=== PATIENT | female | born 1965 | race American Indian/Alaskan Native ===

== ENCOUNTER 2017-07-31 11:14 | Emergency (ER) | payer SELFPAY ==
--- NOTE | 2017-07-31 14:58 | Emergency Department Report ---
ED Headache HPI - General Chief Complaint: Headache Stated Complaint: HEADACHE,BLURRED VISION Time Seen by Provider: 07/31/17 14:39 - History of Present Illness Initial Comments: Patient is a 52-year-old female with a history of migraine presents to ED complaining of right sided ocular, throbbing, headache that started this morning while she was at work. Patient states she was at work she started to have some blurry vision on the right side of her eye until constant headache. She also reports right-sided neck and shoulder pain Patient states she is migraines in the past and she she takes Tylenol PM for relief. Patient denies any fever/chills/nausea/vomiting/ dizziness/head trauma or injury. Allergies/Adverse Reactions: Allergies No Known Allergies Allergy (Verified 07/03/14 22:23) Home Medications: Ambulatory Orders ARIPiprazole [Abilify] 5 mg PO DAILY 09/16/13 Amitriptyline [Elavil] 50 mg PO QHS 09/16/13 QUEtiapine [Seroquel] 300 mg PO QDAY 09/16/13 Vilazodone Hydrochloride [Viibryd] 40 mg PO QDAY 09/16/13 HYDROcodone/APAP 5-325 [[place] 5/325 mg] 1 each PO Q6HR PRN #20 tablet 09/17/13 Cephalexin [Keflex] 500 mg PO BID #20 capsule 07/04/14 HYDROcodone/APAP 5-325 [[place] 5/325] 1 each PO Q6HR PRN #14 tablet 07/04/14 Ibuprofen [Motrin 800 MG tab] 800 mg PO Q8H #30 tablet 07/04/14 Mupirocin [Bactroban 2% Oint] 1 applic TP TID #22 gram 07/04/14 Sulfamethoxazole/Trimethoprim [Bactrim Ds] 1 each PO BID #20 tablet 07/04/14 HYDROcodone/APAP 10-325 [[place] 10-325 mg TAB] 1 each PO Q6HR PRN #20 tablet Amoxicillin/K Clav Tab [Augmentin 875 mg] 1 tab PO Q12HR #12 tab 07/31/17 Ibuprofen [Motrin 600 MG tab] 600 mg PO Q8H PRN #30 tablet 07/31/17 Prochlorperazine [Compazine] 10 mg PO Q8HR #30 tablet 07/31/17 Pseudoephedrine ER [Sudafed 12 Hr] 120 mg PO BID #20 tablet.er 07/31/17 ED Review of Systems ROS: Stated complaint: HEADACHE,BLURRED VISION Other details as noted in HPI Constitutional: denies: chills, fever Eyes: denies: eye pain, eye discharge, vision change ENT: denies: ear pain, throat pain Respiratory: denies: cough, shortness of breath, wheezing Cardiovascular: denies: chest pain, palpitations Endocrine: no symptoms reported Gastrointestinal: denies: abdominal pain, nausea, diarrhea Genitourinary: denies: urgency, dysuria, discharge Musculoskeletal: denies: back pain, joint swelling, arthralgia Skin: denies: rash, lesions Neurological: denies: headache, weakness, paresthesias Psychiatric: denies: anxiety, depression Hematological/Lymphatic: denies: easy bleeding, easy bruising ED Past Medical Hx - Past Medical History Previous Medical History?: Yes Hx Psychiatric Treatment: Yes (depression anxiety) - Surgical History Past Surgical History?: Yes Additional Surgical History: hysterectomy csection - Social History Smoking Status: Current Every Day Smoker Substance Use Type: Alcohol - Medications Home Medications: Home Medications Medication Instructions Recorded Confirmed Last Taken Type ARIPiprazole [Abilify] 5 mg PO DAILY 09/16/13 09/16/13 09/15/13 21:00 History Amitriptyline [Elavil] 50 mg PO QHS 09/16/13 09/16/13 09/15/13 21:00 History QUEtiapine [Seroquel] 300 mg PO QDAY 09/16/13 09/16/13 09/15/13 21:00 History Vilazodone Hydrochloride [Viibryd] 40 mg PO QDAY 09/16/13 09/16/13 09/15/13 21: 00 History HYDROcodone/APAP 5-325 [[place] 1 each PO Q6HR PRN #20 tablet 09/17/13 Unknown Rx 5/325 mg] Cephalexin [Keflex] 500 mg PO BID #20 capsule 07/04/14 Unknown Rx HYDROcodone/APAP 5-325 [[place] 1 each PO Q6HR PRN #14 tablet 07/04/14 Unknown Rx 5/325] Ibuprofen [Motrin 800 MG tab] 800 mg PO Q8H #30 tablet 07/04/14 Unknown Rx Mupirocin [Bactroban 2% Oint] 1 applic TP TID #22 gram 07/04/14 Unknown Rx Sulfamethoxazole/Trimethoprim 1 each PO BID #20 tablet 07/04/14 Unknown Rx [Bactrim Ds] HYDROcodone/APAP 10-325 [[place] 1 each PO Q6HR PRN #20 tablet 07/06/14 Unknown Rx 10-325 mg TAB] Amoxicillin/K Clav Tab [Augmentin 1 tab PO Q12HR #12 tab 07/31/17 Unknown Rx 875 mg] Ibuprofen [Motrin 600 MG tab] 600 mg PO Q8H PRN #30 tablet 07/31/17 Unknown Rx Prochlorperazine [Compazine] 10 mg PO Q8HR #30 tablet 07/31/17 Unknown Rx Pseudoephedrine ER [Sudafed 12 Hr] 120 mg PO BID #20 tablet.er 07/31/17 Unknown Rx ED Physical Exam - General Limitations: No Limitations General appearance: alert, in no apparent distress - Head Head exam: Present: atraumatic, normocephalic - Eye Eye exam: Present: normal appearance, PERRL, EOMI - ENT ENT exam: Present: normal exam, mucous membranes moist - Neck Neck exam: Present: normal inspection - Respiratory Respiratory exam: Present: normal lung sounds bilaterally. Absent: respiratory distress, wheezes, rales, rhonchi - Cardiovascular Cardiovascular Exam: Present: regular rate, normal rhythm. Absent: systolic murmur, diastolic murmur, rubs, gallop - GI/Abdominal GI/Abdominal exam: Present: soft, normal bowel sounds - Extremities Exam Extremities exam: Present: normal inspection - Back Exam Back exam: Present: normal inspection - Neurological Exam Neurological exam: Present: alert, oriented X3, CN II-XII intact - Expanded Neurological Exam Expanded Patient oriented to: Present: person, place, time Speech: Present: fluid speech Cranial nerves: EOM's Intact: Normal, Facial Sensation: Normal Cerebellar function: Finger to Nose: Normal Sensory exam: Upper Extremity Light Touch: Normal, Upper Extremity Temperature: Normal, Lower Extremity Light Touch: Normal, Lower Extremity Temperature: Normal Motor strength exam: RUE: 5, LUE: 5, RLE: 5, LLE: 5 DTR: knee (R): 2+, knee (L): 2+ Best Eye Response ([place]): (4) open spontaneously Best Motor Response ([place]): (6) obeys commands Best Verbal Response ([place]): (5) oriented [place] Total: 15 - Psychiatric Psychiatric exam: Present: normal affect, normal mood - Skin Skin exam: Present: warm, dry, intact, normal color. Absent: rash ED Course Vital Signs 07/31/17 12:30 Temperature 98.2 F Pulse Rate 69 Respiratory 18 Rate Blood Pressure 146/90 O2 Sat by Pulse 100 Oximetry ED Medical Decision Making - Radiology Data Radiology results: report reviewed, image reviewed CT scan of head without IV contrast: History: Right upper leg pain blurred vision. Findings: Ventricles are normal in size and midline in location. No evidence of acute ischemia, hemorrhage or mass. Normal brainstem and cerebellum. Mucosal edema of the ethmoid and sphenoid sinuses. Normal mastoid air cells. Impression: No acute intracranial abnormality. Sinus disease. Transcribed By: PTP Dictated By: RAFAEL ORTIZ MD Electronically Authenticated By: RAFAEL ORTIZ MD Signed Date/Time: 07/31/17 0204 - Medical Decision Making 52-year-old female presents with migraine headache ED course: Patient received Toradol in the ED CT of the head ordered. CT of the head shows sinus disease Discussed findings with the patient. Discussed with patient to avoid stressors and take medication as prescribed. Discussed proper rest and increase fluid intake as well as eating appropriately times Patient is neurologically intact she has no neuro deficits she is in no acute distress Discussed patient will follow up with primary care physician for continued management. Critical care attestation.: If time is entered above; I have spent that time in minutes in the direct care of this critically ill patient, excluding procedure time. ED Disposition Clinical Impression: Ocular headache Sinusitis Qualifiers: Sinusitis location: ethmoidal Chronicity: subacute Qualified Code(s): J01.20 - Acute ethmoidal sinusitis, unspecified Disposition: DC-01 TO HOME OR SELFCARE Is pt being admited?: No Does the pt Need Aspirin: No Condition: Stable Instructions: Acute Headache (ED), Migraine Headache (ED), Sinusitis (ED) Prescriptions: Amoxicillin/K Clav Tab [Augmentin 875 mg] 1 tab PO Q12HR #12 tab Ibuprofen [Motrin 600 MG tab] 600 mg PO Q8H PRN #30 tablet PRN Reason: Pain Prochlorperazine [Compazine] 10 mg PO Q8HR #30 tablet Pseudoephedrine ER [Sudafed 12 Hr] 120 mg PO BID #20 tablet.er Referrals: PRIMARY CARE, [Primary Care Provider] - 3-5 Days RANJEET MIR MD [Staff Physician] - 3-5 Days [facility] [Outside] - 3-5 Days [facility] [Outside] - 3-5 Days Forms: Accompanied Note, Work/School Release Form(ED) Time of Disposition: 15:19
--- NOTE | 2017-07-31 15:08 | Cat Scan Report ---
CT scan of head without IV contrast: History: Right upper leg pain blurred vision. Findings: Ventricles are normal in size and midline in location. No evidence of acute ischemia, hemorrhage or mass. Normal brainstem and cerebellum. Mucosal edema of the ethmoid and sphenoid sinuses. Normal mastoid air cells. Impression: No acute intracranial abnormality. Sinus disease.
[2017-07-31 15:44] VITALS: BP 136/81
== END 2017-07-31 15:43 | disposition home or self-care (01) ==
LOC: ED 11:14
DX: J01.20 Acute ethmoidal sinusitis, unspecified (principal); R51 Headache; F32.9 Major depressive disorder, single episode, unspecified; F41.9 Anxiety disorder, unspecified; F17.200 Nicotine dependence, unspecified, uncomplicated
CPT/HCPCS: 70450

== ENCOUNTER 2017-12-15 13:09 | Emergency (ER) | payer SELFPAY ==
[2017-12-15 13:15] VITALS: BP 122/80
[2017-12-15] MEDS ORDERED: TYLENOL PO ONE (13:16)
[2017-12-15] MEDS ORDERED: TYLENOL ONE (13:17)
--- NOTE | 2017-12-15 14:09 | Emergency Department Report ---
Chief Complaint: Fever Stated Complaint: body pain - HPI History of Present Illness: 52-year-old female presents with a 2 day history of some nausea, vomiting and a productive cough. She also complains of upper abdominal discomfort. No past medical history. She took some Tylenol PM last night without any relief. She says she has felt febrile but did not check her temperature and does present with a low-grade fever. No dysuria, vaginal bleeding or discharge, chest pain or shortness of breath. She is a tobacco smoker. - ROS Review of Systems: Patient is positive for fever, chills, abdominal pain, nausea, vomiting and cough. Patient is negative for chest pain, shortness of breath, diaphoresis. - Exam Vital Signs: Vital Signs 12/15/17 13:13 Temperature 101.7 F H Pulse Rate 110 H Respiratory 16 Rate Blood Pressure 122/80 O2 Sat by Pulse 100 Oximetry Physical Exam: Patient does not appear to be in any acute distress. She is awake and alert. There is a productive sounding cough heard during examination. Heart sounds are normal to auscultation. Upper abdominal tenderness to palpation but no guarding or rebound tenderness and abdomen is not toxic or rigid. MSE screening note: Focused history and physical exam performed. Due to findings the following was ordered: I ordered a CBC, CMP, lipase and urinalysis. I ordered a chest and abdominal x- ray series. ED Disposition for MSE Condition: Stable
[2017-12-15 14:18] LABS: Basophils # (Auto) 0.1 K/mm3 (0.0-0.1); Basophils % (Auto) 0.4 % (0.0-1.8); Eosinophils # (Auto) 0.2 K/mm3 (0.0-0.4); Hematocrit 38.3 % (30.3-42.9); Hemoglobin 13.1 gm/dl (10.1-14.3); Lymphocytes # (Auto) 2.3 K/mm3 (1.2-5.4); Lymphocytes % (Auto) 14.1 % (13.4-35.0); Mean Corpuscular HGB Conc 34 % (30-34); Mean Corpuscular Hemoglobin 32 pg (28-32); Mean Corpuscular Volume 93 fl (79-97); Monocytes # (Auto) 1.6 K/mm3 (0.0-0.8); Platelet Count 246 K/mm3 (140-440); Red Blood Count 4.11 M/mm3 (3.65-5.03); Red Cell Distribution Width 13.4 % (13.2-15.2)
[2017-12-15 14:36] LABS: Alanine Aminotransferase 6 units/L (7-56); Albumin 3.6 g/dL (3.9-5); BUN/Creatinine Ratio 11; Blood Urea Nitrogen 9 mg/dL (7-17); Calcium 8.8 mg/dL (8.4-10.2); Hemolysis Index 2
--- NOTE | 2017-12-15 15:20 | Emergency Department Report ---
HPI - General Chief Complaint: Fever Time Seen by Provider: 12/15/17 14:59 - HPI HPI: 52-year-old -[place] female with no past medical history comes in for pain all over nausea vomiting diarrhea onset started on Saturday. Patient did take Tylenol PM last night. Patient complains of cough with phlegm upper abdominal tenderness and pain. She last vomited yesterday. Past medical history none surgical history and hysterectomy. She has no primary care provider. ED Past Medical Hx - Past Medical History Hx Psychiatric Treatment: Yes (depression anxiety) - Surgical History Additional Surgical History: hysterectomy csection - Social History Smoking Status: Current Every Day Smoker Substance Use Type: Alcohol - Medications Home Medications: Home Medications Medication Instructions Recorded Confirmed Last Taken Type ARIPiprazole [Abilify] 5 mg PO DAILY 09/16/13 09/16/13 09/15/13 21:00 History Amitriptyline [Elavil] 50 mg PO QHS 09/16/13 09/16/13 09/15/13 21:00 History QUEtiapine [Seroquel] 300 mg PO QDAY 09/16/13 09/16/13 09/15/13 21:00 History Vilazodone HCl [Viibryd] 40 mg PO QDAY 09/16/13 09/16/13 09/15/13 21:00 History HYDROcodone/APAP 5-325 [[place] 1 each PO Q6HR PRN #20 tablet 09/17/13 Unknown Rx 5/325 mg] Cephalexin [Keflex] 500 mg PO BID #20 capsule 07/04/14 Unknown Rx HYDROcodone/APAP 5-325 [[place] 1 each PO Q6HR PRN #14 tablet 07/04/14 Unknown Rx 5/325] Ibuprofen [Motrin 800 MG tab] 800 mg PO Q8H #30 tablet 07/04/14 Unknown Rx HYDROcodone/APAP 10-325 [[place] 1 each PO Q6HR PRN #20 tablet 07/06/14 Unknown Rx 10-325 mg TAB] Amoxicillin/K Clav Tab [Augmentin 1 tab PO Q12HR #12 tab 07/31/17 Unknown Rx 875 mg] Ibuprofen [Motrin 600 MG tab] 600 mg PO Q8H PRN #30 tablet 07/31/17 Unknown Rx ALBUTEROL Inhaler [ProAir HFA 2 puff IH QID PRN #1 inhalation 02/04/18 Unknown Rx Inhaler] Benzonatate [Tessalon Perle] 100 mg PO TID #30 capsule 12/15/17 Unknown Rx Doxycycline [Vibramycin CAP] 100 mg PO Q12HR 10 Days #20 capsule 12/15/17 Unknown Rx ED Review of Systems ROS: Stated complaint: body pain Other details as noted in HPI Constitutional: chills, fever Respiratory: cough Cardiovascular: denies: chest pain, palpitations Endocrine: no symptoms reported Gastrointestinal: nausea, vomiting, diarrhea Genitourinary: denies: urgency, dysuria, discharge Musculoskeletal: denies: back pain, joint swelling, arthralgia Skin: denies: rash, lesions Neurological: denies: headache, weakness, paresthesias Psychiatric: denies: anxiety, depression Hematological/Lymphatic: denies: easy bleeding, easy bruising Physical Exam - Physical Exam Vital Signs: Vital Signs 12/15/17 13:13 Temperature 101.7 F H Pulse Rate 110 H Respiratory 16 Rate Blood Pressure 122/80 O2 Sat by Pulse 100 Oximetry Physical Exam: GENERAL APPEARANCE: Well developed, well nourished, in no acute distress. SKIN: Inspection of the skin reveals no rashes, ulcerations or petechiae. HEENT: The sclerae were anicteric and conjunctivae were pink and moist. Extraocular movements were intact and pupils were equal, round, and reactive to light with normal accommodation. External inspection of the ears and nose showed no scars, lesions, or masses. Lips, teeth, and gums showed normal mucosa. The oral mucosa, hard and soft palate, tongue and posterior pharynx were normal. NECK: Supple and symmetric. There was no thyroid enlargement, and no tenderness , or masses were felt. CHEST: Normal AP diameter and normal contour without any kyphoscoliosis. LUNGS: Auscultation of the lungs revealed normal breath sounds without any other adventitious sounds or rubs. CARDIOVASCULAR: There was a regular rate and rhythm without any murmurs, gallops , rubs. The carotid pulses were normal and 2+ bilaterally without bruits. Peripheral pulses were 2+ and symmetric. ABDOMEN: Soft and nontender with normal bowel sounds. The liver span was approximately 5-6 cm in the right midclavicular line by percussion. The liver edge was nontender. The spleen was not palpable. There were no inguinal or umbilical hernias noted. No ascites was noted. RECTAL: Normal perineal exam. Sphincter tone was normal. There was no external hemorrhoids or rectal masses. Stool Hemoccult was negative. The prostate was normal size without any nodules appreciated (men only). LYMPH NODES: No lymphadenopathy was appreciated in the neck, axillae or groin. MUSCULOSKELETAL: Gait was normal. There was no tenderness or effusions noted. Muscle strength and tone were normal. EXTREMITIES: No cyanosis, clubbing or edema. NEUROLOGIC: Alert and oriented x 3. Normal affect. Gait was normal. Normal deep tendon reflexes with no pathological reflexes. Sensation to touch was normal. ED Course Vital Signs 12/15/17 13:13 Temperature 101.7 F H Pulse Rate 110 H Respiratory 16 Rate Blood Pressure 122/80 O2 Sat by Pulse 100 Oximetry ED Medical Decision Making - Lab Data Result diagrams: 12/15/17 14:02 12/15/17 14:02 - Radiology Data Radiology results: report reviewed, image reviewed FINDINGS: Normal heart size. Ill-defined increased markings in the right infrahilar region may represent atelectasis or infiltrate. Scattered bowel gas in a nonspecific pattern. No suspicious calcifications. No free air. Mild prominence of the AP window. No effusions identified. IMPRESSION: Mild ill-defined right infrahilar increased markings compatible with atelectasis or possibly a subtle infiltrate. Mildly prominent markings in the AP window and suprahilar left upper lobe. There is a nodularity which measures 1.1 centimeter in the left upper lobe which is centrally and may be related to summation artifact or nodule. Recommend two view chest to further assess both findings. Nonspecific bowel gas pattern. No suspicious calcifications. No free air. Transcribed By: KENIA Dictated By: FAUSTINA BRENNAN Electronically Authenticated By: FAUSTINA BRENNAN Signed Date/Time: 12/15/17 1724 Critical care attestation.: If time is entered above; I have spent that time in minutes in the direct care of this critically ill patient, excluding procedure time. ED Disposition Clinical Impression: Atelectasis of right lung Clinical Impression: (Ruled Out): Pneumonia Disposition: DC-01 TO HOME OR SELFCARE Is pt being admited?: No Does the pt Need Aspirin: No Condition: Stable Additional Instructions: Please complete antibiotics as prescribed. Please follow up with her primary care doctor within 3-5 days for further evaluation and repeat chest x-ray. Please return back to the emergency room if patient spikes a fever or symptoms persist or gets worse. Prescriptions: ALBUTEROL Inhaler [ProAir HFA Inhaler] 2 puff IH QID PRN #1 inhalation PRN Reason: Shortness Of Breath Benzonatate [Tessalon Perle] 100 mg PO TID #30 capsule Doxycycline [Vibramycin CAP] 100 mg PO Q12HR 10 Days #20 capsule Referrals: PRIMARY CARE, [Primary Care Provider] - 3-5 Days Forms: Work/School Release Form(ED)
--- NOTE | 2017-12-15 15:38 | XRay Report ---
FINAL REPORT EXAM: XR ABD SERIES W CXR 1V HISTORY: cough, upper abd pain TECHNIQUE: Frontal chest x-ray and two views of the abdomen Comparison: None FINDINGS: Normal heart size. Ill-defined increased markings in the right infrahilar region may represent atelectasis or infiltrate. Scattered bowel gas in a nonspecific pattern. No suspicious calcifications. No free air. Mild prominence of the AP window. No effusions identified. IMPRESSION: Mild ill-defined right infrahilar increased markings compatible with atelectasis or possibly a subtle infiltrate. Mildly prominent markings in the AP window and suprahilar left upper lobe. There is a nodularity which measures 1.1 centimeter in the left upper lobe which is centrally and may be related to summation artifact or nodule. Recommend two view chest to further assess both findings. Nonspecific bowel gas pattern. No suspicious calcifications. No free air.
[2017-12-15] MEDS ORDERED: PROVENTIL IH ONE (15:40)
[2017-12-15 16:11] LABS: Bilirubin,Urine NEG (Negative); Blood,Urine LG (Negative); Color,Urine Yellow (Yellow); Mucus,Urine 3+ /HPF; Nitrite,Urine NEG (Negative)
[2017-12-15 16:12] LABS: RBC,Urine > 182.0 /HPF (0.0-6.0)
== END 2017-12-15 17:12 | disposition home or self-care (01) ==
LOC: ED 13:09
DX: J98.11 Atelectasis (principal); F32.9 Major depressive disorder, single episode, unspecified; F41.9 Anxiety disorder, unspecified; F17.200 Nicotine dependence, unspecified, uncomplicated; Z90.710 Acquired absence of both cervix and uterus
CPT/HCPCS: 36415; 74022; 80053; 81001; 83690; 85025; 87400; 99284

== ENCOUNTER 2018-02-18 07:54 | Emergency (ER) | payer OTHER ==
[2018-02-18 08:02] VITALS: BP 124/78
[2018-02-18] MEDS ORDERED: MARCAINE 0.5% 0 ML INFILTRATI ONE (08:22)
--- NOTE | 2018-02-18 09:39 | XRay Report ---
ROUTINE CHEST, TWO VIEWS: Cough PA and lateral views demonstrate the heart and mediastinal contour to be of normal size and shape. The lungs are clear and fully expanded and the soft tissues and bony structures are normal. IMPRESSION: Normal study.
[2018-02-18] MEDS ORDERED: TESSALON PERLES PO ONE (09:45)
[2018-02-18] MEDS ORDERED: MOTRIN PO ONE (09:45)
--- NOTE | 2018-02-18 09:50 | Emergency Department Report ---
- General Chief Complaint: Upper Respiratory Infection Stated Complaint: FLU LIKE SYMPTOMS Time Seen by Provider: 02/18/18 08:53 Source: patient Mode of arrival: Ambulatory Limitations: No Limitations - History of Present Illness Initial Comments: This is a 52-year-old female nontoxic, well nourished in appearance, no acute signs of distress presents to the ED with c/o of productive cough, rhinorrhea, nasal congestion x1 week. Patient describes productive cough as yellow mucus production. Patient denies any sick contact. Patient denies any recent travels , long car, recent hospital stays. Patient denies any calf pain or calf tenderness. Patient denies any chest pain, short of breath, fever, chills, nausea, vomiting, hemoptysis, numbness, tingling, headache or stiff neck. Patient denies any allergies or significant past medical history. MD Complaint: cough, rhinorrhea, nasal congestion -: week(s) (1) Severity: mild Severity scale (0 -10): 0 Consistency: constant Improves With: nothing Worsens With: nothing Associated Symptoms: rhinorrhea, nasal congestion, cough. denies: fever, chills , myalgias, diaphoresis, headache, sore throat, stiff neck, chest pain, shortness of breath, abdominal pain, nausea, vomiting, diarrhea, dysuria, rash, confusion, right sweats, weight loss, epistaxis, hoarseness, ear pain Treatments Prior to Arrival: none - Related Data Home Medications Medication Instructions Recorded Confirmed Last Taken ARIPiprazole [Abilify] 5 mg PO DAILY 09/16/13 09/16/13 09/15/13 21:00 Amitriptyline [Elavil] 50 mg PO QHS 09/16/13 09/16/13 09/15/13 21:00 QUEtiapine [Seroquel] 300 mg PO QDAY 09/16/13 09/16/13 09/15/13 21:00 Vilazodone HCl [Viibryd] 40 mg PO QDAY 09/16/13 09/16/13 09/15/13 21:00 Previous Rx's Medication Instructions Recorded Last Taken Type HYDROcodone/APAP 5-325 [[place] 1 each PO Q6HR PRN #20 tablet 09/17/13 Unknown Rx 5/325 mg] Cephalexin [Keflex] 500 mg PO BID #20 capsule 07/04/14 Unknown Rx HYDROcodone/APAP 5-325 [[place] 1 each PO Q6HR PRN #14 tablet 07/04/14 Unknown Rx 5/325] Ibuprofen [Motrin 800 MG tab] 800 mg PO Q8H #30 tablet 07/04/14 Unknown Rx HYDROcodone/APAP 10-325 [[place] 1 each PO Q6HR PRN #20 tablet 07/06/14 Unknown Rx 10-325 mg TAB] Amoxicillin/K Clav Tab [Augmentin 1 tab PO Q12HR #12 tab 07/31/17 Unknown Rx 875 mg] Ibuprofen [Motrin 600 MG tab] 600 mg PO Q8H PRN #30 tablet 07/31/17 Unknown Rx ALBUTEROL Inhaler [ProAir HFA 2 puff IH QID PRN #1 inhalation 12/15/17 Unknown Rx Inhaler] Benzonatate [Tessalon Perle] 100 mg PO TID #30 capsule 12/15/17 Unknown Rx Doxycycline [Vibramycin CAP] 100 mg PO Q12HR 10 Days #20 capsule 12/15/17 Unknown Rx Azithromycin [Zithromax Z-REED] 250 mg PO DAILY #6 tablet 02/18/18 Unknown Rx Benzonatate [Tessalon Perle] 100 mg PO Q6H PRN #20 capsule 02/18/18 Unknown Rx Prednisone [predniSONE 10 mg 10 mg PO .TAPER #1 tab.ds.pk 02/18/18 Unknown Rx (6-Day Pack, 21 Tabs)] Allergies Allergy/AdvReac Type Severity Reaction Status Date / Time No Known Allergies Allergy Verified 02/18/18 07:59 ED Review of Systems ROS: Stated complaint: FLU LIKE SYMPTOMS Other details as noted in HPI Constitutional: denies: chills, fever Eyes: denies: eye pain, eye discharge, vision change ENT: denies: ear pain, throat pain Respiratory: cough. denies: shortness of breath, wheezing Cardiovascular: denies: chest pain, palpitations Endocrine: no symptoms reported Gastrointestinal: denies: abdominal pain, nausea, diarrhea Genitourinary: denies: urgency, dysuria, discharge Musculoskeletal: denies: back pain, joint swelling, arthralgia Skin: denies: rash, lesions Neurological: denies: headache, weakness, paresthesias Psychiatric: denies: anxiety, depression Hematological/Lymphatic: denies: easy bleeding, easy bruising ED Past Medical Hx - Past Medical History Hx Psychiatric Treatment: Yes (depression anxiety) - Surgical History Additional Surgical History: hysterectomy csection - Social History Smoking Status: Current Every Day Smoker Substance Use Type: Alcohol - Medications Home Medications: Home Medications Medication Instructions Recorded Confirmed Last Taken Type ARIPiprazole [Abilify] 5 mg PO DAILY 09/16/13 09/16/13 09/15/13 21:00 History Amitriptyline [Elavil] 50 mg PO QHS 09/16/13 09/16/13 09/15/13 21:00 History QUEtiapine [Seroquel] 300 mg PO QDAY 09/16/13 09/16/13 09/15/13 21:00 History Vilazodone HCl [Viibryd] 40 mg PO QDAY 09/16/13 09/16/13 09/15/13 21:00 History HYDROcodone/APAP 5-325 [[place] 1 each PO Q6HR PRN #20 tablet 09/17/13 Unknown Rx 5/325 mg] Cephalexin [Keflex] 500 mg PO BID #20 capsule 07/04/14 Unknown Rx HYDROcodone/APAP 5-325 [[place] 1 each PO Q6HR PRN #14 tablet 07/04/14 Unknown Rx 5/325] Ibuprofen [Motrin 800 MG tab] 800 mg PO Q8H #30 tablet 07/04/14 Unknown Rx HYDROcodone/APAP 10-325 [[place] 1 each PO Q6HR PRN #20 tablet 07/06/14 Unknown Rx 10-325 mg TAB] Amoxicillin/K Clav Tab [Augmentin 1 tab PO Q12HR #12 tab 07/31/17 Unknown Rx 875 mg] Ibuprofen [Motrin 600 MG tab] 600 mg PO Q8H PRN #30 tablet 07/31/17 Unknown Rx ALBUTEROL Inhaler [ProAir HFA 2 puff IH QID PRN #1 inhalation 12/15/17 Unknown Rx Inhaler] Benzonatate [Tessalon Perle] 100 mg PO TID #30 capsule 12/15/17 Unknown Rx Doxycycline [Vibramycin CAP] 100 mg PO Q12HR 10 Days #20 capsule 12/15/17 Unknown Rx Azithromycin [Zithromax Z-REED] 250 mg PO DAILY #6 tablet 02/18/18 Unknown Rx Benzonatate [Tessalon Perle] 100 mg PO Q6H PRN #20 capsule 02/18/18 Unknown Rx Prednisone [predniSONE 10 mg 10 mg PO .TAPER #1 tab.ds.pk 02/18/18 Unknown Rx (6-Day Pack, 21 Tabs)] ED Physical Exam - General Limitations: No Limitations General appearance: alert, in no apparent distress - Head Head exam: Present: atraumatic, normocephalic - Eye Eye exam: Present: normal appearance Pupils: Present: normal accommodation - ENT ENT exam: Present: normal exam, normal orophraynx, mucous membranes moist, TM's normal bilaterally, normal external ear exam - Neck Neck exam: Present: normal inspection, full ROM. Absent: tenderness, meningismus - Respiratory Respiratory exam: Present: normal lung sounds bilaterally. Absent: respiratory distress, wheezes, rales, rhonchi, stridor, chest wall tenderness, accessory muscle use, decreased breath sounds, prolonged expiratory - Cardiovascular Cardiovascular Exam: Present: regular rate, normal rhythm, normal heart sounds. Absent: bradycardia, tachycardia, irregular rhythm, systolic murmur, diastolic murmur, rubs, gallop - GI/Abdominal GI/Abdominal exam: Present: soft, normal bowel sounds - Extremities Exam Extremities exam: Present: normal inspection, full ROM, normal capillary refill - Back Exam Back exam: Present: normal inspection, full ROM - Neurological Exam Neurological exam: Present: alert, oriented X3, normal gait - Psychiatric Psychiatric exam: Present: normal affect, normal mood - Skin Skin exam: Present: warm, dry, intact, normal color. Absent: rash ED Course Vital Signs 02/18/18 07:59 Temperature 98.5 F Pulse Rate 76 Respiratory 18 Rate Blood Pressure 124/78 O2 Sat by Pulse 100 Oximetry - Reevaluation(s) Reevaluation #1: 02/18/18 09:52 Patient is speaking in full sentences with no signs of distress noted. ED Medical Decision Making - Medical Decision Making This is a 52-year-old female that presents with bronchitis. Patient is stable and was examined by me. Chest x-ray has been obtained and dictated by radiologist with normal exam. Patient is notified of x-ray results with no questions noted. Due to patient having symptoms of bronchitis and worsening I will treat patient empirically with zpak. Patient was instructed to increase hydration, rest and take Motrin for fever episodes. Patient received tesslone perrls in the ED. Vitals stable. Patient is nonfebrile and normal heart rate. Patient was instructed Follow-up with a primary care doctor in 3-5 days or if symptoms worsen and continue return to emergency room as soon as possible. At time time of discharge, the patient does not seem toxic or ill in appearance. No acute signs of distress noted. Patient agrees to discharge treatment plan of care. No further questions noted by the patient. Critical care attestation.: If time is entered above; I have spent that time in minutes in the direct care of this critically ill patient, excluding procedure time. ED Disposition Clinical Impression: Bronchitis Disposition: [id number] TO HOME OR SELFCARE Is pt being admited?: No Does the pt Need Aspirin: No Condition: Stable Instructions: Acute Bronchitis (ED), Azithromycin (By mouth) Additional Instructions: Follow-up with a primary care doctor in 3-5 days or if symptoms worsen and continue return to emergency room as soon as possible. Prescriptions: Azithromycin [Zithromax Z-REED] 250 mg PO DAILY #6 tablet Benzonatate [Tessalon Perle] 100 mg PO Q6H PRN #20 capsule PRN Reason: Cough Prednisone [predniSONE 10 mg (6-Day Pack, 21 Tabs)] 10 mg PO .TAPER #1 tab.ds.pk Referrals: PRIMARY CARE, [Primary Care Provider] - 3-5 Days DIANE VASQUEZ MD [Staff Physician] - 3-5 Days [facility] [Outside] - 3-5 Days [facility] [Outside] - 3-5 Days Forms: Work/School Release Form(ED)
== END 2018-02-18 10:18 | disposition home or self-care (01) ==
LOC: ED 07:54
DX: J40 Bronchitis, not specified as acute or chronic (principal); F17.200 Nicotine dependence, unspecified, uncomplicated
CPT/HCPCS: 71046; 99283

== ENCOUNTER 2018-03-11 13:24 | Emergency (ER) | payer SELFPAY ==
[2018-03-11 14:24] VITALS: BP 119/76
--- NOTE | 2018-03-11 15:44 | Emergency Department Report ---
HPI - General Chief Complaint: Sore Throat Time Seen by Provider: 03/11/18 15:40 - HPI HPI: patient c/o sore throat, anterior neck pain, low grade fever, pain with swallowing. ED Past Medical Hx - Past Medical History Previous Medical History?: Yes Hx Hypertension: No Hx Psychiatric Treatment: Yes (depression anxiety) - Surgical History Past Surgical History?: Yes Additional Surgical History: hysterectomy csection - Social History Smoking Status: Current Every Day Smoker Substance Use Type: Alcohol - Medications Home Medications: Home Medications Medication Instructions Recorded Confirmed Last Taken Type ARIPiprazole [Abilify] 5 mg PO DAILY 09/16/13 09/16/13 09/15/13 21:00 History Amitriptyline [Elavil] 50 mg PO QHS 09/16/13 09/16/13 09/15/13 21:00 History QUEtiapine [Seroquel] 300 mg PO QDAY 09/16/13 09/16/13 09/15/13 21:00 History Vilazodone HCl [Viibryd] 40 mg PO QDAY 09/16/13 09/16/13 09/15/13 21:00 History HYDROcodone/APAP 5-325 [[place] 1 each PO Q6HR PRN #20 tablet 09/17/13 Unknown Rx 5/325 mg] Cephalexin [Keflex] 500 mg PO BID #20 capsule 07/04/14 Unknown Rx HYDROcodone/APAP 5-325 [[place] 1 each PO Q6HR PRN #14 tablet 07/04/14 Unknown Rx 5/325] Ibuprofen [Motrin 800 MG tab] 800 mg PO Q8H #30 tablet 07/04/14 Unknown Rx HYDROcodone/APAP 10-325 [[place] 1 each PO Q6HR PRN #20 tablet 07/06/14 Unknown Rx 10-325 mg TAB] Amoxicillin/K Clav Tab [Augmentin 1 tab PO Q12HR #12 tab 07/31/17 Unknown Rx 875 mg] Ibuprofen [Motrin 600 MG tab] 600 mg PO Q8H PRN #30 tablet 07/31/17 Unknown Rx ALBUTEROL Inhaler [ProAir HFA 2 puff IH QID PRN #1 inhalation 12/15/17 Unknown Rx Inhaler] Benzonatate [Tessalon Perle] 100 mg PO TID #30 capsule 02/04/18 Unknown Rx Doxycycline [Vibramycin CAP] 100 mg PO Q12HR 10 Days #20 capsule 12/15/17 Unknown Rx Azithromycin [Zithromax Z-REED] 250 mg PO DAILY #6 tablet 02/18/18 Unknown Rx Benzonatate [Tessalon Perle] 100 mg PO Q6H PRN #20 capsule 02/18/18 Unknown Rx Prednisone [predniSONE 10 mg 10 mg PO .TAPER #1 tab.ds.pk 02/18/18 Unknown Rx (6-Day Pack, 21 Tabs)] Amoxicillin [Amoxicillin TAB] 875 mg PO BID #20 tablet 03/11/18 Unknown Rx ED Review of Systems ROS: Stated complaint: SWOLLEN LYMPH NODES Other details as noted in HPI ENT: throat pain Respiratory: denies: cough, orthopnea Physical Exam - Physical Exam Vital Signs: Vital Signs 03/11/18 14:21 Temperature 98.8 F Pulse Rate 75 Respiratory 20 Rate Blood Pressure 119/76 O2 Sat by Pulse 100 Oximetry Physical Exam: GENERAL APPEARANCE: Well developed, well nourished, alert and cooperative, and appears to be in no acute distress. HEAD: normocephalic. EYES: PERRL, EOMI. Fundi normal, vision is grossly intact. EARS: External auditory canals and tympanic membranes clear, hearing grossly intact. NOSE: No nasal discharge. THROAT: pharyngeal erythema, NECK: Neck supple, tender lymphadenopathy anterior, masses or thyromegaly. CARDIAC: Normal S1 and S2. No S3, S4 or murmurs. Rhythm is regular. There is no peripheral edema, cyanosis or pallor. Extremities are warm and well perfused. Capillary refill is less than 2 seconds. No carotid bruits. LUNGS: Clear to auscultation and percussion without rales, rhonchi, wheezing or diminished breath sounds. ABDOMEN: Positive bowel sounds. Soft, nondistended, nontender. No guarding or rebound. No masses. MUSKULOSKELETAL: Adequately aligned spine. ROM intact spine and extremities. No joint erythema or tenderness. Normal muscular development. Normal ED Course Vital Signs 03/11/18 14:21 Temperature 98.8 F Pulse Rate 75 Respiratory 20 Rate Blood Pressure 119/76 O2 Sat by Pulse 100 Oximetry Critical care attestation.: If time is entered above; I have spent that time in minutes in the direct care of this critically ill patient, excluding procedure time. ED Disposition Clinical Impression: Pharyngitis Qualifiers: Pharyngitis/tonsillitis etiology: other specified organisms Qualified Code(s): J02.8 - Acute pharyngitis due to other specified organisms Disposition: TO HOME OR SELFCARE Is pt being admited?: No Does the pt Need Aspirin: No Condition: Stable Instructions: Pharyngitis (ED) Prescriptions: Amoxicillin [Amoxicillin TAB] 875 mg PO BID #20 tablet Referrals: PRIMARY CARE, [Primary Care Provider] - 3-5 Days Forms: Work/School Release Form(ED)
== END 2018-03-11 17:06 | disposition home or self-care (01) ==
LOC: ED 13:24
DX: J02.9 Acute pharyngitis, unspecified (principal); F32.9 Major depressive disorder, single episode, unspecified; F17.200 Nicotine dependence, unspecified, uncomplicated; Z90.710 Acquired absence of both cervix and uterus
CPT/HCPCS: 99282

== ENCOUNTER 2018-05-12 08:55 | Emergency (ER) | payer OTHER ==
[2018-05-12 09:13] VITALS: BP 124/85
[2018-05-12] MEDS ORDERED: MOTRIN PO ONE (09:46)
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
--- NOTE | 2018-05-12 10:27 | XRay Report ---
LUMBOSACRAL SPINE, 3 VIEWS: History: Back pain Findings: The vertebral bodies, disk spaces and posterior elements are intact. No compression deformity or malalignment. The SI joints are symmetric and unremarkable. Impression: 1. No evidence for acute injury to the lumbar spine.
--- NOTE | 2018-05-12 10:28 | XRay Report ---
CERVICAL SPINE, 3 views: History: Neck pain. Findings: The vertebral bodies, disk spaces, posterior elements and prevertebral soft tissues are intact. The dens is intact. No acute fracture or malalignment is identified. Moderate degenerative disc disease with anterior spurring is noted at C5-6 and C6-7. Impression: Cervical spondylosis. No evidence for acute injury to the cervical spine.
== END 2018-05-12 10:50 | disposition home or self-care (01) ==
LOC: ED 08:55
DX: S13.4XXA Sprain of ligaments of cervical spine, initial encounter (principal); S39.012A Strain of muscle, fascia and tendon of lower back, initial encounter; F41.9 Anxiety disorder, unspecified; F32.9 Major depressive disorder, single episode, unspecified; F17.200 Nicotine dependence, unspecified, uncomplicated; Z90.710 Acquired absence of both cervix and uterus; V49.49XA Driver injured in collision with other motor vehicles in traffic accident, initial encounter; Y93.89 Activity, other specified; Y99.8 Other external cause status; Y92.488 Other paved roadways as the place of occurrence of the external cause
CPT/HCPCS: 72040; 72100

== ENCOUNTER 2018-08-12 08:04 | Emergency (ER) | payer SELFPAY ==
[2018-08-12 08:20] VITALS: BP 122/83
--- NOTE | 2018-08-12 09:39 | Emergency Department Report ---
ED General Adult HPI - General Chief complaint: Nausea/Vomiting/Diarrhea Stated complaint: COUGHING HEAD ACHE/VOMIT Time Seen by Provider: 08/12/18 09:13 Source: patient Mode of arrival: Ambulatory Limitations: No Limitations - History of Present Illness Initial comments: Patient complains of a cough that started on Saturday. Patient also states at that time she had a fever as well. She explains that the cough is productive in nature. Patient does endorse being a smoker. Patient denies any chest pain but states that her cough has been so intense that it causes her to vomit. -: Gradual Radiation: non-radiation Severity scale (0 -10): 0 Consistency: constant Improves with: none Worsens with: none Associated Symptoms: denies other symptoms Treatments Prior to Arrival: none - Related Data Home Medications Medication Instructions Recorded Confirmed Last Taken ARIPiprazole [Abilify] 5 mg PO DAILY 09/16/13 09/16/13 09/15/13 21:00 Amitriptyline [Elavil] 50 mg PO QHS 09/16/13 09/16/13 09/15/13 21:00 QUEtiapine [Seroquel] 300 mg PO QDAY 09/16/13 09/16/13 09/15/13 21:00 Vilazodone HCl [Viibryd] 40 mg PO QDAY 09/16/13 09/16/13 09/15/13 21:00 Previous Rx's Medication Instructions Recorded Last Taken Type HYDROcodone/APAP 5-325 [[place] 1 each PO Q6HR PRN #20 tablet 09/17/13 Unknown Rx 5/325 mg] Cephalexin [Keflex] 500 mg PO BID #20 capsule 07/04/14 Unknown Rx HYDROcodone/APAP 5-325 [[place] 1 each PO Q6HR PRN #14 tablet 07/04/14 Unknown Rx 5/325] Ibuprofen [Motrin 800 MG tab] 800 mg PO Q8H #30 tablet 07/04/14 Unknown Rx HYDROcodone/APAP 10-325 [[place] 1 each PO Q6HR PRN #20 tablet 07/06/14 Unknown Rx 10-325 mg TAB] Amoxicillin/K Clav Tab [Augmentin 1 tab PO Q12HR #12 tab 07/31/17 Unknown Rx 875 mg] Ibuprofen [Motrin 600 MG tab] 600 mg PO Q8H PRN #30 tablet 07/31/17 Unknown Rx ALBUTEROL Inhaler (OR & NICU) 2 puff IH QID PRN #1 inhalation 12/15/17 Unknown Rx [ProAir HFA Inhaler] Benzonatate [Tessalon Perle] 100 mg PO TID #30 capsule 12/15/17 Unknown Rx Doxycycline [Vibramycin CAP] 100 mg PO Q12HR 10 Days #20 capsule 12/15/17 Unknown Rx Azithromycin [Zithromax Z-REED] 250 mg PO DAILY #6 tablet 02/18/18 Unknown Rx Benzonatate [Tessalon Perle] 100 mg PO Q6H PRN #20 capsule 02/18/18 Unknown Rx Prednisone [predniSONE 10 mg 10 mg PO .TAPER #1 tab.ds.pk 02/18/18 Unknown Rx (6-Day Pack, 21 Tabs)] Amoxicillin [Amoxicillin TAB] 875 mg PO BID #20 tablet 03/11/18 Unknown Rx Cyclobenzaprine [Flexeril] 10 mg PO BID PRN #14 tablet 05/12/18 Unknown Rx Ibuprofen [Motrin] 600 mg PO Q8H PRN #30 tablet 05/12/18 Unknown Rx ALBUTEROL Inhaler(NF) [VENTOLIN 2 puff IH Q4HR PRN #1 inha 08/12/18 Unknown Rx Inhaler(NF)] Benzonatate [Tessalon Perles] 100 mg PO Q8HR #12 capsule 08/12/18 Unknown Rx levoFLOXacin [Levaquin] 750 mg PO QDAY #5 tablet 08/12/18 Unknown Rx Allergies Allergy/AdvReac Type Severity Reaction Status Date / Time No Known Allergies Allergy Verified 02/18/18 07:59 ED Review of Systems ROS: Stated complaint: COUGHING HEAD ACHE/VOMIT Other details as noted in HPI Comment: All other systems reviewed and negative Constitutional: denies: chills, fever Eyes: denies: eye pain, eye discharge, vision change ENT: denies: ear pain, throat pain Respiratory: cough. denies: shortness of breath, wheezing Cardiovascular: denies: chest pain, palpitations Endocrine: no symptoms reported Gastrointestinal: denies: abdominal pain, nausea, diarrhea Genitourinary: denies: urgency, dysuria, discharge Musculoskeletal: denies: back pain, joint swelling, arthralgia Skin: denies: rash, lesions Neurological: denies: headache, weakness, paresthesias Psychiatric: denies: anxiety, depression Hematological/Lymphatic: denies: easy bleeding, easy bruising ED Past Medical Hx - Past Medical History Hx Hypertension: No Hx Psychiatric Treatment: Yes (depression anxiety) - Surgical History Additional Surgical History: hysterectomy csection - Social History Smoking Status: Current Every Day Smoker Substance Use Type: None - Medications Home Medications: Home Medications Medication Instructions Recorded Confirmed Last Taken Type ARIPiprazole [Abilify] 5 mg PO DAILY 09/16/13 09/16/13 09/15/13 21:00 History Amitriptyline [Elavil] 50 mg PO QHS 09/16/13 09/16/13 09/15/13 21:00 History QUEtiapine [Seroquel] 300 mg PO QDAY 09/16/13 09/16/13 09/15/13 21:00 History Vilazodone HCl [Viibryd] 40 mg PO QDAY 09/16/13 09/16/13 09/15/13 21:00 History HYDROcodone/APAP 5-325 [[place] 1 each PO Q6HR PRN #20 tablet 09/17/13 Unknown Rx 5/325 mg] Cephalexin [Keflex] 500 mg PO BID #20 capsule 07/04/14 Unknown Rx HYDROcodone/APAP 5-325 [[place] 1 each PO Q6HR PRN #14 tablet 07/04/14 Unknown Rx 5/325] Ibuprofen [Motrin 800 MG tab] 800 mg PO Q8H #30 tablet 07/04/14 Unknown Rx HYDROcodone/APAP 10-325 [[place] 1 each PO Q6HR PRN #20 tablet 07/06/14 Unknown Rx 10-325 mg TAB] Amoxicillin/K Clav Tab [Augmentin 1 tab PO Q12HR #12 tab 07/31/17 Unknown Rx 875 mg] Ibuprofen [Motrin 600 MG tab] 600 mg PO Q8H PRN #30 tablet 07/31/17 Unknown Rx ALBUTEROL Inhaler (OR & NICU) 2 puff IH QID PRN #1 inhalation 12/15/17 Unknown Rx [ProAir HFA Inhaler] Benzonatate [Tessalon Perle] 100 mg PO TID #30 capsule 12/15/17 Unknown Rx Doxycycline [Vibramycin CAP] 100 mg PO Q12HR 10 Days #20 capsule 12/15/17 Unknown Rx Azithromycin [Zithromax Z-REED] 250 mg PO DAILY #6 tablet 02/18/18 Unknown Rx Benzonatate [Tessalon Perle] 100 mg PO Q6H PRN #20 capsule 02/18/18 Unknown Rx Prednisone [predniSONE 10 mg 10 mg PO .TAPER #1 tab.ds.pk 02/18/18 Unknown Rx (6-Day Pack, 21 Tabs)] Amoxicillin [Amoxicillin TAB] 875 mg PO BID #20 tablet 03/11/18 Unknown Rx Cyclobenzaprine [Flexeril] 10 mg PO BID PRN #14 tablet 05/12/18 Unknown Rx Ibuprofen [Motrin] 600 mg PO Q8H PRN #30 tablet 05/12/18 Unknown Rx ALBUTEROL Inhaler(NF) [VENTOLIN 2 puff IH Q4HR PRN #1 inha 08/12/18 Unknown Rx Inhaler(NF)] Benzonatate [Tessalon Perles] 100 mg PO Q8HR #12 capsule 08/12/18 Unknown Rx levoFLOXacin [Levaquin] 750 mg PO QDAY #5 tablet 08/12/18 Unknown Rx ED Physical Exam - General Limitations: No Limitations General appearance: alert, in no apparent distress - Head Head exam: Present: atraumatic, normocephalic - Eye Eye exam: Present: normal appearance - ENT ENT exam: Present: mucous membranes moist - Neck Neck exam: Present: normal inspection - Respiratory Respiratory exam: Present: normal lung sounds bilaterally, rales (right lower lobe rales). Absent: respiratory distress - Cardiovascular Cardiovascular Exam: Present: regular rate, normal rhythm. Absent: systolic murmur, diastolic murmur, rubs, gallop - GI/Abdominal GI/Abdominal exam: Present: soft, normal bowel sounds - Extremities Exam Extremities exam: Present: normal inspection - Back Exam Back exam: Present: normal inspection - Neurological Exam Neurological exam: Present: alert, oriented X3 - Psychiatric Psychiatric exam: Present: normal affect, normal mood - Skin Skin exam: Present: warm, dry, intact, normal color. Absent: rash ED Course Vital Signs 08/12/18 08:17 Temperature 98.4 F Pulse Rate 75 Respiratory 18 Rate Blood Pressure 122/83 O2 Sat by Pulse 99 Oximetry ED Medical Decision Making - Medical Decision Making Discussed plan of care with patient Since the patient is afebrile and well-appearing with a normal pulse and respiratory rate and was thought that she could be treated as an outpatient with antibiotics, antitussive medication, albuterol. Patient was in agreement with that plan of care and she will return if things become worse Patient also received a Good Rx prescription Card Critical care attestation.: If time is entered above; I have spent that time in minutes in the direct care of this critically ill patient, excluding procedure time. ED Disposition Clinical Impression: Pneumonia Disposition: DC-01 TO HOME OR SELFCARE Is pt being admited?: No Does the pt Need Aspirin: No Condition: Stable Instructions: Pneumonia (ED) Additional Instructions: return if worse Prescriptions: ALBUTEROL Inhaler(NF) [VENTOLIN Inhaler(NF)] 2 puff IH Q4HR PRN #1 inha PRN Reason: Wheezing Benzonatate [Tessalon Perles] 100 mg PO Q8HR #12 capsule levoFLOXacin [Levaquin] 750 mg PO QDAY #5 tablet Referrals: PRIMARY CARE, [Primary Care Provider] - 3-5 Days Time of Disposition: 09:37
== END 2018-08-12 09:49 | disposition home or self-care (01) ==
LOC: ED 08:04
DX: J18.9 Pneumonia, unspecified organism (principal); F17.200 Nicotine dependence, unspecified, uncomplicated; F32.9 Major depressive disorder, single episode, unspecified; F41.9 Anxiety disorder, unspecified; Z90.710 Acquired absence of both cervix and uterus; Z79.899 Other long term (current) drug therapy
CPT/HCPCS: 99281